=== PATIENT | female | born 1955 | race African-American/Black ===

== ENCOUNTER 2019-12-25 13:17 | Inpatient (IN) | payer OTHER ==
[~2019-12-25] VITALS: Ht 167.6 cm; Wt 77.0 kg
[~2019-12-25 13:17] MED LIST: AMLODIPINE BESY10 MG PO; AZOR 5-20 MG T1 EACH PO; BYSTOLIC10 MG PO; DYAZIDE 37.5-21 EACH PO; LISINOPRIL40 MG PO; LOPRESSOR PO
[2019-12-25 13:19] VITALS: BP 236/122
[2019-12-25 13:45] LABS: ABSOLUTE NEUTROPHILS 8.6 thou/uL (1.4-8.2); BASOPHILS 0.5 % (0.0-2.0); HEMATOCRIT 42.8 % (37.0-47.0); HEMOGLOBIN 14.3 gm/dL (12.0-15.0); LYMPHOCYTES 8.1 % (24.0-44.0); MCH 29.4 pg (26.0-34.0); MCHC 33.4 g/dL (28.0-37.0); MONOCYTES 3.1 % (1.0-8.0); PLATELET COUNT 322 thou/uL (150-400); POLYS 88.3 % (36.0-66.0); RBC 4.86 mil/uL (4.20-5.00); WBC 9.7 thou/uL (4.0-11.0)
[2019-12-25 13:59] LABS: URINE BILIRUBIN NEGATIVE (Negative); URINE BLOOD 2+ (Negative); URINE CLARITY SL CLOUDY; URINE COLOR YELLOW; URINE GLUCOSE-RANDOM* 3+ (Negative); URINE KETONES 2+ (Negative); URINE LEUKOCYTES-REFLEX NEGATIVE (Negative); URINE NITRITE-REFLEX NEGATIVE (Negative); URINE PROTEIN (DIPSTICK) 3+ (Negative); URINE SPECIFIC GRAVITY 1.025 (1.005-1.035); URINE UROBILINOGEN 0.2 E.U./dl (0.2-1.0)
[2019-12-25 14:15] LABS: AMP/METHAMP Negative (Negative); BARBITURATES Negative (Negative); BENZODIAZEPINES Negative (Negative); COCAINE Negative (Negative); METHADONE Negative (Negative); OPIATES Negative (Negative); PCP Negative (Negative)
[2019-12-25 14:26] LABS: HCO3 15.3 mmol/L (22.0-26.0); PO2 VENOUS 44.4 mmHg (35.0-45.0)
--- NOTE | 2019-12-25 14:26 | NUR ---
ELIZABETH FERRERA ([facility]) [phone]
[2019-12-25 14:47] LABS: AMORPHOUS URATES Moderate /LPF (None Seen); SQUAMOUS 4-10 Moderate /LPF (0-3)
[2019-12-25 14:48] LABS: BACTERIA-REFLEX 1-9 Few /HPF (None Seen); CASTS None Seen /LPF (None Seen); URINE RBC 0-2 Rare /HPF (0-2); URINE WBC-REFLEX None Seen /HPF (0-5)
[2019-12-25 15:52] LABS: ALBUMIN 3.9 g/dL (3.4-5.0); ANION GAP 24 mmol/L (7-16); BUN 35 mg/dL (7-18); CALCIUM 8.9 mg/dL (8.5-10.1); CHLORIDE 103 mmol/L (98-107); CO2 15 mmol/L (21-32); CREATININE 2.1 mg/dL (0.6-1.0); MAGNESIUM 1.8 mg/dL (1.8-2.4); POTASSIUM 4.8 mmol/L (3.5-5.1); SALICYLATE < 2.8 mg/dL (2.8-20.0); SGOT 28 U/L (15-37); SGPT 30 U/L (30-65); SODIUM 142 mmol/L (136-145); TOTAL BILIRUBIN 0.7 mg/dL (0.2-1.0); TOTAL PROTEIN 9.1 g/dL (6.4-8.2); TROPONIN-I 0.07 ng/mL (<0.06)
[2019-12-25 16:16] LABS: GLUCOSE 504 mg/dL (74-106)
[2019-12-25 17:29] LABS: CSF GLUCOSE 299 mg/dL (40-70)
[2019-12-25 17:42] LABS: CSF CLARITY CLEAR; CSF COLOR COLORLESS; CSF RBC 233 /mm3; CSF WBC 5 /mm3 (0-10); VOLUME 11.5 ml
--- NOTE | 2019-12-25 19:57 | NUR ---
PICC TO BE PLACED PER ORDERED BY DR. RASCON. PATIENT IS VERY RESTLESS. EMT ASSISTED PLACING LINE. MEDICAL NECESSITY PER DR. RASCON. TIME OUT COMPLETED WITH NORMA LA RN. TRIPLE LUMEN PICC PLACED TO RUE BASILIC VEIN. ONE STICK AND NO COMPLICATIONS. PATIENT TOLERATED WELL. PICC LENGTH =37 CM. EXT =3.5CM. V.O.=20%/ TO OF PICC VERIFIED DISTAL SVC PER CHEST XRAY. NORMA LA RN NOTIFIED OKAY TO USE PICC.
[2019-12-25 21:17] LABS: RBC 4.55 mil/uL (4.20-5.00)
[2019-12-25 21:19] LABS: BASOPHILS 0.6 % (0.0-2.0); HEMATOCRIT 39.7 % (37.0-47.0); HEMOGLOBIN 13.5 gm/dL (12.0-15.0); LYMPHOCYTES 10.1 % (24.0-44.0); MCH 29.6 pg (26.0-34.0); MCV 87.1 fL (80.0-100.0); MONOCYTES 3.3 % (1.0-8.0); PLATELET COUNT 290 thou/uL (150-400); RDW 14.2 % (10.5-14.5)
[2019-12-25 21:25] LABS: CALCIUM 8.2 mg/dL (8.5-10.1); CREATININE 1.9 mg/dL (0.6-1.0)
[2019-12-25 21:28] LABS: POTASSIUM 3.2 mmol/L (3.5-5.1)
[2019-12-25 21:30] LABS: ALBUMIN 3.3 g/dL (3.4-5.0); MAGNESIUM 1.6 mg/dL (1.8-2.4); PHOSPHORUS 0.9 mg/dL (2.5-4.9)
[2019-12-25 21:43] LABS: CHOLESTEROL 277 mg/dL (<200); HDL CHOLESTEROL 43 mg/dL (>40); LDL CHOLESTEROL 208 mg/dL (<100); SERUM ASSESSMENT Clear; TC:HDL 6.4 Ratio (Not establshd); TRIGLYCERIDE 134 mg/dL (<150); VLDL 27 mg/dL (<40)
[2019-12-26] VITALS (46 sets, daily range): BP systolic 140–217; BP diastolic 73–107
[2019-12-26 03:05] LABS: CALCIUM 7.7 mg/dL (8.5-10.1); CREATININE 1.9 mg/dL (0.6-1.0); MAGNESIUM 1.6 mg/dL (1.8-2.4); PHOSPHORUS 3.3 mg/dL (2.5-4.9); POTASSIUM 3.9 mmol/L (3.5-5.1)
[2019-12-26 03:33] LABS: FOLIC ACID 18.7 ng/mL (8.6-58.9); TSH 0.722 uIU/mL (0.358-3.740)
--- NOTE | 2019-12-26 08:11 | EKG ---
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 : 1955 Requested By: Alexandra Bolaños Order Number: [id number] MD: Evaristo Duncan Measurements Intervals [place] Rate: 107 P: 53 [place]: 153 QRS: 6 QRSD: 80 T: 139 QT: 334 QTc: 446 Interpretive Statements Sinus tachycardia LVH with secondary repolarization abnormality Anterior ST elevation, probably due to LVH Compared to ECG 12/25/2019 13:52:31 No significant changes Electronically Signed On 12-26-2019 8:11:40 CDT by Evaristo Duncan [email or web address] <ELECTRONICALLY SIGNED> By: Evaristo Duncan MD 12/26/19 0811 1421 142 Evaristo Duncan MD /EPI
--- NOTE | 2019-12-26 08:12 | EKG ---
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1955 Requested By: Alexandra Bolaños Order Number: [id number] MD: Evaristo Duncan Measurements Intervals [place] Rate: 109 P: 46 [place]: 157 QRS: 0 QRSD: 80 T: 121 QT: 334 QTc: 450 Interpretive Statements Sinus tachycardia LVH with secondary repolarization abnormality Anterior ST elevation, probably due to LVH Baseline wander in lead(s) V2 No previous ECG available for comparison Electronically Signed On 12-26-2019 8:12:23 CDT by Evaristo Duncan [email or web address] <ELECTRONICALLY SIGNED> By: Evaristo Duncan MD 12/26/19811 135 51 Evaristo Duncan MD /EPI
--- NOTE | 2019-12-26 08:41 | NUR ---
ADMIT FROM ER DKA. ORIENTED TO ROOM. HOURLY BLOOD SUGARS. HTN. MD AWARE. HISTORY AND PHYSICAL DONE.
--- NOTE | 2019-12-26 09:00 | NUR ---
PT UPDATED. EMOTIONALY SUPPORT GIVEN. SHIKHA AND DR. CÁRDENAS HERE. PT HTN. WILL TRY HYDRALZINE. PT WAKING UP AND FOLLOWING COMMAND. DKA PROTOLCOL IN PLACE.
--- NOTE | 2019-12-26 10:08 | NUR ---
chart review. unable to visit with bedside nurse at this time. cm unable to visit with fredy. tried calling number, not a working number. tried calling friend marce mora, , left message and tried daughter listed and no answer. fredy came in with ams, high bp and high bs. will cont following as needed for dc needs. covid pending.
[2019-12-26 11:47] LABS: CALCIUM 7.8 mg/dL (8.5-10.1); CREATININE 1.4 mg/dL (0.6-1.0); POTASSIUM 3.3 mmol/L (3.5-5.1)
[2019-12-26 11:51] LABS: MAGNESIUM 1.6 mg/dL (1.8-2.4)
--- NOTE | 2019-12-26 13:51 | NUR ---
ENDOCRINE PAGED REGARDING MG 1.6 AWAIING CALL BACK.
[2019-12-26 19:40] LABS: CALCIUM 7.8 mg/dL (8.5-10.1); CREATININE 1.3 mg/dL (0.6-1.0); POTASSIUM 3.6 mmol/L (3.5-5.1)
[2019-12-26 19:41] LABS: MAGNESIUM 1.4 mg/dL (1.8-2.4)
--- NOTE | 2019-12-26 20:56 | NUR ---
PT WORKING TOWARDS GOALS. VSS. BLOOD SUGAR UNDER 200 GAP CLOSINGS. FOLLOWING COMMANDS. HTN. HYDRALAZINE GIVEN X 2
[2019-12-27 01:06] LABS: ESTIMATED AVERAGE GLUCOSE < 74 mg/dL (()); GLYCOHEMOGLOBIN (HGB A1C) < 4.2 % (4.8-5.6)
[2019-12-27 05:48] LABS: CALCIUM 7.7 mg/dL (8.5-10.1); CREATININE 1.3 mg/dL (0.6-1.0); POTASSIUM 3.4 mmol/L (3.5-5.1)
[2019-12-27 05:50] LABS: ABSOLUTE NEUTROPHILS 7.4 thou/uL (1.4-8.2); BASOPHILS 0.4 % (0.0-2.0); EOSINOPHILS 0.3 % (0.0-3.0); HEMATOCRIT 39.3 % (37.0-47.0); LYMPHOCYTES 18.2 % (24.0-44.0); MCH 29.3 pg (26.0-34.0); MCHC 33.2 g/dL (28.0-37.0); MCV 88.3 fL (80.0-100.0); MONOCYTES 6.3 % (1.0-8.0); PLATELET COUNT 220 thou/uL (150-400); POLYS 74.8 % (36.0-66.0); RBC 4.45 mil/uL (4.20-5.00); RDW 14.2 % (10.5-14.5); WBC 9.9 thou/uL (4.0-11.0)
[2019-12-27 05:58] LABS: ALBUMIN 2.9 g/dL (3.4-5.0); TOTAL BILIRUBIN 0.5 mg/dL (0.2-1.0)
--- NOTE | 2019-12-27 06:24 | NUR ---
PT IS ALERT AND ORIENTED X4. LUNGS ARE CLEAR ON ROOM AIR. COMPLAINTS OF HEADACHE AND SOME ELEVATED BLOOD PRESSURES. MANAGED WITH TYELNOL AND MEDS GIVEN FOR BLOOD PRESSURE. RELIEF OF HEADACHE AFTER TYENOL. ON INSULIN DRIP AND MANAGEMENT. WILL CONTINUE TO MANANGE DRIP AND BLOOD PRESSURES AT THIS TIME IN ISOLATION IN ENHANCED PRECAUTIONS FOR CORNA IN THE ICU AT THIS TIME FOR HOSPITALIZATION
--- NOTE | 2019-12-27 10:59 | HC ---
[facility] [place] [address] CONSULTATION Name: BETH CRONIN Room #: [facility] IN M.R.#: [id number] Admission: 12/25/19 Attend Phys: Raf Stuart MD Discharge: Date of : 57 Report #: [id number] THIS REPORT FOR: cc: JW Marcano family physician/PCP JW - Krys family physician/PCP Santiago Landis MD ~ CC: Raf ESCALERA physician/PCP DATE OF SERVICE: 12/26/2019 ENDOCRINE CONSULTATION NOTE CONSULTING PHYSICIAN: Dr. Stuart. REASON FOR CONSULTATION: DKA, type 2 diabetes mellitus. HISTORY OF PRESENT ILLNESS: This is a 64-year-old female patient who presented to the ER with the issue of altered mental status. The patient was brought by family, as she was noted to have behavioral changes and to become combative. She was febrile with a temperature of 102. It appears that most recently the patient has not been taking any medications. On arrival, the patient was found to be hyperglycemic and in diabetic ketoacidosis. She also was found to have lactic acidosis and sepsis, and was admitted for further care and monitoring. The patient has been somnolent, not informative, unable to communicate well. REVIEW OF SYSTEMS: CONSTITUTIONAL: Fatigue, tiredness, mental status changes as noted above in addition to reports of fever. HEENT: Negative for sore throat, sinus pain, ear drainage. PULMONARY: Negative for shortness of breath, cough or hemoptysis. CARDIAC: Negative for chest pain, palpitations, syncope or presyncope. GASTROINTESTINAL: Negative for abdominal pain, nausea, vomiting or change in her bowel movement frequency. NEUROLOGY: Negative for seizure activity, severe frequent headaches or loss of consciousness. DERMATOLOGY: Negative for rash, ulceration, discoloration or other major abnormalities. Otherwise, review of systems was noncontributory other than those mentioned in HPI. PAST MEDICAL HISTORY: Hypertension and hyperlipidemia. OUTPATIENT MEDICATIONS: Noted for lisinopril 40 mg daily, Bystolic 10 mg daily, amlodipine 10 mg daily, triamterene/hydrochlorothiazide 37.5/25 mg daily. [facility] [address] [place] [address] CONSULTATION Name: BETH CRONIN Room #: 238-P [facility] IN ..#: [id number] Admission: 12/25/19 Attend Phys: Raf Stuart MD Discharge: Date of : 57 Report #: [id number] ALLERGIES: No known drug allergies. FAMILY HISTORY: Noncontributory. SOCIAL HISTORY: No documentation of tobacco or alcohol use. She is . PHYSICAL EXAMINATION: GENERAL: The patient is somnolent, appears lethargic, not arousable by verbal stimuli. VITAL SIGNS: Blood pressure is 168/83 mmHg. This was as high as 232/125 mmHg, heart rate is 74 beats per minute, respirations 16 per minute, temperature 37.1 degrees Celsius. CONSTITUTIONAL: The patient is lying in bed, lethargic, not responsive and somnolent. HEENT: Anicteric sclerae. NECK: Supple. No thyromegaly. CHEST: Noted for limited air entry bilaterally with scattered rales. HEART: Regular rate and rhythm without murmurs or gallops. ABDOMEN: Soft, lax. No guarding. Active bowel sounds. EXTREMITIES: Lower extremity exam, negative for ankle edema, skin breaks or ulcerations. NEUROLOGIC: Lethargic, somnolent, not cooperative. PSYCHIATRIC: Somnolent, not cooperative. LABORATORY RESULTS: Blood glucose values were examined and on arrival they were over 500 and has since been consistently between 222 and 386 mg/dL. Sodium 146, potassium 3.3, chloride 112, CO2 of 20, anion gap 14, BUN 25, creatinine 1.4, glucose 269, AST 28, calcium 7.8, phosphorus 1.0, magnesium 1.6, alkaline phosphatase 112, total protein 9.1, albumin 3.0. EGFR 46. Ammonia 35. Lactic acid 1.8. On arrival, it was 3.5. Troponin 0.15. Total cholesterol 277, triglycerides 134, HDL 43, LDL 208. Negative alcohol level, CRP 11.3. White blood count 7.0, hemoglobin 13.5, hematocrit 39.7, platelets 290. COVID testing has been negative so far. TSH 0.722. Hemoglobin A1c has been ordered and that is pending. ASSESSMENT AND PLAN: 1. Diabetic ketoacidosis. The patient presented with clinical and metabolic changes that are suggestive of diabetic ketoacidosis including an anion gap of 24 on presentation. The patient was appropriately managed with intravenous insulin therapy and intravenous fluids as per the [facility] protocol, especially given her inability to cooperate with p.o. intake. The patient is slowly responding to these measures and has had her blood glucose descend into the low 200 mg/dL range. Given her continued clinical instability, somnolence, and still not ideal blood glucose control, I would like to continue with IV insulin therapy and IV fluid therapy until these issues have [facility] [address] [place] [address] CONSULTATION Name: BETH CRONIN Room #: 238-P [facility] IN M.R.#: [id number] Admission: 12/25/19 Attend Phys: Raf Stuart MD Discharge: Date of : 57 Report #: [id number] demonstrated more stability. I am hopeful to be able to switch her off of IV insulin therapy tomorrow morning. Until then, the patient is to undergo blood glucose monitoring as per the intravenous insulin infusion protocol at [facility]. 2. Type 2 diabetes mellitus. With her diabetic ketoacidosis presentation, it is strongly assumed that she has a diabetic background. However, little is known about that issue historically and her outpatient regimen is not available to me at this point in time. I will check a hemoglobin A1c to gain a better understanding of her glycemic outlook over the past few months. Once the patient has been able to come off intravenous insulin, antidiabetic therapy will be devised accordingly and according to her needs at this time. 3. Hypertension. The patient is known to have hypertension and is maintained on multiple agents. Her blood pressure control is stable for the time being, she is to continue with the same. 4. Hyperlipidemia. Severe, and is in need of statin therapy. However, this can be initiated when the patient had proven to be more clinically stable first. 5. Sepsis. The patient is being investigated and has been so far COVID negative; she is currently on vancomycin and Rocephin. I certainly appreciate this consultation by Dr. Stuart. <ELECTRONICALLY SIGNED> By: Santiago Landis MD 12/27/19 1059 1327 1405 Santiago Landis MD /nt
--- NOTE | 2019-12-27 11:32 | EKG ---
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1955 Requested By: Alexandra Bolaños Order Number: [id number] MD: Evaristo Duncan Measurements Intervals [place] Rate: 75 P: 58 [place]: 164 QRS: 5 QRSD: 86 T: 193 QT: 431 QTc: 482 Interpretive Statements Sinus rhythm LVH with secondary repolarization abnormality Anterior ST elevation, probably due to LVH Not an STEMI Compared to ECG 12/25/2019 14:21:01 Electronically Signed On 12-27-2019 11:32:37 CDT by Evaristo Duncan [email or web address] <ELECTRONICALLY SIGNED> By: Evaristo Duncan MD 12/27/19 1132 4 4 Evaristo Duncan MD /EPI
--- NOTE | 2019-12-27 12:20 | NUR ---
ASSUMED CARE @ 0700 12/27/19, PT ASSESSMENTS AND VSS COMPLETE PER ICU PROTOCOL. PT ENCOUNTERED ON THE INSULIN GTT. DR CÁRDENAS HERE TO ROUND, NO ORDERS RECIEVED AT THAT TIME. DR LAWRENCE AT BEDSIDE TO VISIT WITH PT, ORDERS RECIEVED AND EXECUTED. LANTUS GIVEN @ 1145, WILL STOP INSULIN GTT @ [address] SMILEY ID CALLED TO SEE IF ENHANCED PRECAUTIONS CAN BE DISCONTINUED DUE TO ALREADY 3 NEGATIVE RESULTS, ORDER GIVE TO D'C. ORDERS FOR TRANSFER AFTER INSULIN DRIP TURNED OFF, WILL CONT TO MONITOR.
[2019-12-27 15:30] VITALS: BP 183/84
--- NOTE | 2019-12-27 15:57 | NUR ---
ASSUMED CARE OF PT AT APPROX 1500 TRANSFER FROM ICU. INITIAL ASSESSMENT CHARTED. PT ORIENTED TO ROOM AND DESIGNATED VISITOR NAME ENTERED. PT A&OX4, NO C/O PAIN OR DISTRESS. WILL CONTINUE TO MONITOR AND FOLLOW POC.
[2019-12-27 21:03] VITALS: BP 183/84
[2019-12-28 00:11] VITALS: BP 147/79
[2019-12-28 04:45] VITALS: BP 152/85
--- NOTE | 2019-12-28 05:42 | NUR ---
ASSESSMENTS CHARTED, MEDS CHARTED GIVEN. PATIENT HAD ARRIVED FROM ICU DURING DAY SHIFT. PUMPS WERE SET UP AND IV'S STARTED. EVENING ACCU CHECK WAS 315. SPOKE WITH NIHARIKA LEGER WHO DC'D ALL OF THE ICU AND DKA ORDERS. ELECTROLYTES WERE ADDRESSED. PATIENT'S BP WAS ELEVATED AT START OF SHIFT 183/84. HYDRALAZINE GIVEN. C/O HEADACHE TWICE DURING SHIFT. GAVE TYLENOL. REMOVED CERVANTES. PATIENT WAS VERY DIZZY AND UNBALANCED WHEN SHE GOT UP TO USE THE BATHROOM. UP WITH STANDBY ASSIST AND GAITBELT.
[2019-12-28 07:12] VITALS: BP 172/67
--- NOTE | 2019-12-28 10:05 | NUR ---
PATIENT IS NOW ON IVF- NS ONLY THIS AM. ? DISCONTINUE PICC SOON TO DECREASE RISK OF INFECTION
[2019-12-28 11:15] VITALS: BP 149/69
[2019-12-28 15:00] VITALS: BP 130/63
--- NOTE | 2019-12-28 18:01 | NUR ---
AAOX4. CALM, PLEASANT. HTN NOTED. IVF DISCONTINUED. SR/ST PER TELE. VOIDING WITHOUT DIFFICULTY SINCE CERVANTES DC'D. WILL CONTINUE TO FOLLOW CLOSELY.
[2019-12-28 20:15] VITALS: BP 187/92
[2019-12-29 04:51] VITALS: BP 145/77
--- NOTE | 2019-12-29 06:23 | NUR ---
ASSESSMENT DOCUMENTED.PT BEEN RESTING IN NO ACUTE DISTRESS.A/OX4.VSS.DENIES NEEDS.BLOOD PRESSURE CONTROLLED WITH PRN MEDS.PT TO POSSIBLY DISCHARGE TODAY TO HOME.
[2019-12-29 07:15] VITALS: BP 157/84
--- NOTE | 2019-12-29 09:40 | 2DMMODE ---
[facility] [address] [place] [address] 2 D/M-MODE ECHOCARDIOGRAM Name: JULIA CRONINRUPA Gonzalez Room #: 200-I ADM IN .R.#: [id number] Admission: 12/25/19 Attend Phys: Raf Stuart MD Discharge: Date of : 57 Report #: [id number] THIS REPORT FOR: cc: FAM - No family physician/PCP FAM - No family physician/PCP Frantz Pereira MD ~ APPROVED REPORT Study performed: 12/29/2019 07:22:23 EXAM: Comprehensive 2D, Doppler, and color-flow Echocardiogram Patient Location: Bedside Room #: 200 Status: routine BSA: 1.86 HR: 74 bpm BP: 157/84 mmHg Rhythm: NSR Other Information Study Quality: Adequate Indications Elevated troponin. Hx: HTN, HLP. 2D Dimensions RVDd: 29.52 mm IVSd: 15.45 (7-11mm) LVOT Diam: 18.58 (18-24mm) LVDd: 34.05 mm PWd: 15.60 (7-11mm) Ascending Ao: 29.00 (22-36mm) LVDs: 21.85 (25-40mm) Aortic Root: 29.00 mm Volumes Left Atrial Volume (Systole) Single Plane 4CH: 59.06 mL Single Plane 2CH: 55.97 mL LA ESV Index: 32.00 mL/m2 Aortic Valve AoV Peak Jarod.: 2.32 m/s AO Peak Gr.: 21.53 mmHg LVOT Max P.66 mmHg AO Mean Gr.: 11.48 mmHg AO V2 Mean: 1.60 m/s LVOT Max V: 1.98 m/s [facility] [address] [place] [address] 2 D/M-MODE ECHOCARDIOGRAM Name: BETH CRONIN Room #: 200-I [facility]#: [id number] Admission: 12/25/19 Attend Phys: Simi Mcdermott Discharge: Date of : 57 Report #: [id number] AO V2 VTI: 37.72 cm LAUREL Vmax: 2.31 cm2 Mitral Valve E/A Ratio: 0.7 MV Decel. Time: 288.99 ms MV E Max Jarod.: 0.68 m/s MV A Jarod.: 0.95 m/s MV PHT: 83.81 ms IVRT: 106.11 ms Pulmonary Valve PV Peak Jarod.: 2.16 m/s PV Peak Gr.: 18.65 mmHg Pulmonary Vein P Vein S: 0.52 m/s P Vein A: 0.35 m/s P Vein D: 0.34 m/s P Vein A Dur.: 101.5 msec P Vein S/D Ratio: 1.53 Tricuspid Valve RAP Estimate: 5.00 mmHg Left Ventricle The left ventricle is normal size. There is normal LV segmental wall motion. Moderate concentric left ventricular hypertrophy. Left ventricular systolic function is hyperdynamic. LVEF is 65-70%. Mild diastolic dysfunction is present (impaired relaxation pattern). Right Ventricle The right ventricle is normal size. The right ventricular systolic function is normal. Atria Left atrium is at the upper limits of normal. The right atrium size is normal. Aortic Valve Aortic valve leaflets are mildly thickened. No aortic regurgitation is present. There is no aortic valvular stenosis. Mitral Valve The mitral valve is normal in structure. There is no mitral valve regurgitation noted. No evidence of mitral valve stenosis. Tricuspid Valve [facility] [address] [address] 2 D/M-MODE ECHOCARDIOGRAM Name: ROSEANNEBETH Gonzalez Room #: 200-I ADM IN ..#: [id number] Admission: 12/25/19 Attend Phys: Simi Mcdermott Discharge: Date of : 57 Report #: [id number] The tricuspid valve is normal in structure. There is no tricuspid valve regurgitation noted. Unable to assess PA pressure. Pulmonic Valve Pulmonic valve is not well visualized. Trace pulmonic regurgitation. Great Vessels The aortic root is normal in size. The ascending aorta is normal in size. IVC is normal in size and collapses >50% with inspiration. Pericardium There is no pericardial effusion. <Conclusion> Moderate concentric left ventricular hypertrophy. Aortic valve leaflets are mildly thickened. The mitral valve is normal in structure. The tricuspid valve is normal in structure. There is no tricuspid valve regurgitation noted. Unable to assess PA pressure. Pulmonic valve is not well visualized. Trace pulmonic regurgitation. There is no pericardial effusion. <ELECTRONICALLY SIGNED> By: Frantz Pereira MD 12/29/19939 9 9 Frantz Pereira MD /INF
[2019-12-29 11:04] LABS: HEMATOCRIT 38.5 % (37.0-47.0); HEMOGLOBIN 12.9 gm/dL (12.0-15.0); MCH 29.3 pg (26.0-34.0); MCHC 33.5 g/dL (28.0-37.0); MCV 87.5 fL (80.0-100.0); RBC 4.4 mil/uL (4.20-5.00); RDW 13.9 % (10.5-14.5); WBC 5.1 thou/uL (4.0-11.0)
[2019-12-29 11:05] VITALS: BP 180/103
[2019-12-29 11:09] LABS: CALCIUM 8.1 mg/dL (8.5-10.1); CREATININE 1.3 mg/dL (0.6-1.0); POTASSIUM 3.5 mmol/L (3.5-5.1)
--- NOTE | 2019-12-29 11:45 | NUR ---
ASSUMED CARE AT SHIFT CHANGE, ALERT AND ORIENTED X4. DENIES ANY DICOMFORT. BP REMAINS HIGH, PATIENT SCHEDULED FOR NUC MED STRESS TEST,SOME OF THE MORNING MEDS ARE NOT GIVING, AND WILL GIVE MEDS AFTER STRESS TEST COMPLETED. PATIENT ANXIOUS ABOUT DM, EDUCATIONAL MATERIAL GIVEN AND HER CONCERNS HAVE ADDRESSED. WILL CONTINUE WITH POC.
[2019-12-29] MEDS ORDERED: METOPROLOL SUCC50 MG PO (13:01)
[2019-12-29] MEDS ORDERED: HYDROCHLOROTHIA25 M1 PO (13:01)
[2019-12-29] MEDS ORDERED: PEPCID20 MG PO (13:01)
[2019-12-29] MEDS ORDERED: LIPITOR40 MG PO (13:01)
[2019-12-29] MEDS ORDERED: LANTUS SUBQ (13:01)
[2019-12-29] MEDS ORDERED: HUMALOG100 UNIT/1 SUBQ (13:01)
[2019-12-29 15:55] VITALS: BP 159/94
[2019-12-29 19:37] VITALS: BP 159/88
[2019-12-30] VITALS (7 sets, daily range): BP systolic 140–169; BP diastolic 75–89
--- NOTE | 2019-12-30 03:57 | NUR ---
ASSESSMENT DOCUMENTED.PT BEEN RESTING IN NO ACUTE DISTRESS.VSS.PT WAS CONCERNED WHY SHE WAS URINATING ALOT IN THE EVENING HRS YESTERDAY,EDUCATED ON HCTZ MEDS THAT SHE WAS GIVEN AND VOICED THE UNDERSTANDING.ANTICIPATING DISCHARGE TODAY TO HOME.WILL CONT TO MONITOR PER POC.
[2019-12-30 06:12] LABS: CALCIUM 8.4 mg/dL (8.5-10.1); CREATININE 1.1 mg/dL (0.6-1.0); POTASSIUM 3.3 mmol/L (3.5-5.1)
[2019-12-30] MEDS ORDERED: LANTUS SUBQ (10:06)
[2019-12-30] MEDS ORDERED: LISINOPRIL20 MG PO (10:06)
[2019-12-30] MEDS ORDERED: NORVASC10 MG PER TUBE (10:06)
[2019-12-30] MEDS ORDERED: HUMALOG100 UNIT/1 SUBQ (10:06)
--- NOTE | 2019-12-30 10:16 | NUR ---
patient to [place] home today. Gave her list of PCP. She reports she has seen Dr Cardenas in past. She plans to review and possibly f/u with him
--- NOTE | 2019-12-30 10:20 | NUR ---
ASSUMED CARE AT SHIFT CHANGE, ALERT AND ORIENTED X4. BP CONTROLLED WITH SCHEDULED MED, AND DR POLANCO ADJUSTED PATIENT MEDICATION WELL. PATIENT EDUCATED ON HOW TO GIVE HER SELF INSULIN, AND SHE DID GIVE HERSELF INSULIN THIS MORNING. DISCHARGE AND MEDICATION INSTRUCTIONS GIVEN TO PATIENT, AND WAITING FOR HER TO COME.
[2019-12-30] MEDS ORDERED: MECLIZINE HCL25 MG PO (14:41)
== END 2019-12-30 17:15 | disposition home or self-care (01) | DRG 871 ==
LOC: ER 13:17 → 2N 19:57 → EROBS 19:57 → ICU 19:57 → 2N 12-27 15:04
PROVIDERS: Internal Medicine; Nurse Practitioner; Nurse Practitioner Family; Physician Assistant; ADMIT Hospitalist; ATTEND Hospitalist
PROC: 02HV33Z Insertion of Infusion Device into Superior Vena Cava, Percutaneous Approach (ICD-10-PCS; principal; 2019-12-25)
DX: A41.9 Sepsis, unspecified organism (principal); E11.10 Type 2 diabetes mellitus with ketoacidosis without coma; G93.41 Metabolic encephalopathy; N17.9 Acute kidney failure, unspecified; E87.0 Hyperosmolality and hypernatremia; R65.20 Severe sepsis without septic shock; I16.0 Hypertensive urgency; E78.5 Hyperlipidemia, unspecified; E78.00 Pure hypercholesterolemia, unspecified; Z20.828 Contact with and (suspected) exposure to other viral communicable diseases; E83.42 Hypomagnesemia; E87.6 Hypokalemia; Z79.899 Other long term (current) drug therapy
CPT/HCPCS: 10078; 10081; 27000